=== PATIENT | male | born 1960 | race African-American/Black ===

== ENCOUNTER → 2018-09-10 07:48 | Outpatient (CLI) | payer OTHER ==
[2014-07-13 15:35] VITALS: BMI 25.7
[~2018-09-10 07:48] MED LIST: CELEBREX200 MG PO; ZANAFLEX4 MG PO
[2018-09-11 09:19] LABS: HEPATITIS C ANTIBODY <0.1 (0.0-0.9)
== END | disposition home or self-care (01) ==
LOC: D.US 07:48
PROVIDERS: Internal Medicine Gastroenterology
DX: R79.89 Other specified abnormal findings of blood chemistry (principal)

== ENCOUNTER → 2019-03-13 09:31 | Outpatient (CLI) | payer OTHER ==
[2014-07-13 15:35] VITALS: BMI 25.7
[2019-03-13 10:35] LABS: ALBUMIN 3.6 g/dL (3.4-5.0); BILIRUBIN - DIRECT 0.11 mg/dL (0.00-0.30); BILIRUBIN - INDIRECT 0.27 mg/dL (0.00-1.00); BILIRUBIN - TOTAL 0.38 mg/dL (0.2-1.3); PROTEIN - SERUM 8.1 g/dL (6.4-8.2)
== END | disposition home or self-care (01) ==
LOC: D.US 03-11 09:30
PROVIDERS: ATTEND Internal Medicine Gastroenterology
DX: R94.5 Abnormal results of liver function studies (principal); K76.0 Fatty (change of) liver, not elsewhere classified

== ENCOUNTER → 2019-12-01 14:05 | Outpatient (CLI) | payer MEDICAID ==
[2014-07-13 15:35] VITALS: BMI 25.7
== END | disposition home or self-care (01) ==
LOC: D.HCCARDIO 14:05
PROVIDERS: ATTEND Internal Medicine Interventional Cardiology
DX: R07.9 Chest pain, unspecified (principal)

== ENCOUNTER → 2019-12-04 09:08 | Outpatient (CLI) | payer MEDICAID ==
[2014-07-13 15:35] VITALS: BMI 25.7
--- NOTE | 2019-12-08 11:24 | ST ---
PATIENT:BRENTON BREWER III MEDICAL RECORD: [id number] SEX: M LOCATION:[facility] ORDER #: ADMISSION DATE: 12/04/19 AGE OF PATIENT: 59 REFERRING PHYSICIAN: INTERPRETING PHYSICIAN: MOISÉS VICENTE MD DATE OF SERVICE: 12/04/2019 INDICATION: Angina, hypertension, family history of coronary artery disease. The patient was exercised on standard Lexiscan protocol with 33 mCi of sestamibi injected at peak stress, 11 mCi used previously for rest images. FINDINGS: Gated SPECT reveals preserved ejection fraction at 59% with decreased thickening and brightening throughout the inferior segments. SPECT imaging Cardiolite was used as myocardial perfusion agent. There is a mixed perfusion defect inferiorly, partially fixed, partially reversible. However, there is reversible ischemia anteriorly as well. This includes the basal, mid, apical anterior segments. Degree of reversibility is mild. The amount of myocardium involved between the 2 defects is large. OVERALL IMPRESSION: This is an intermediate risk abnormal nuclear stress test, mixed perfusion defect, partially fixed, partially reversible inferiorly reversibility anteriorly suggestive of hemodynamically significant coronary artery disease. TRANSINT:[id number] Voice Confirmation ID: [id number] DOCUMENT ID: [id number] MOISÉS VICENTE MD at 1124 CC: KRYSTLE OLIVIER [id number] DICTATION DATE: 12/04/19 1340 RN SHIFT MGR: 12/04/19 2100 DEP CLI 12/04/19 [facility] [address] [place] [address]
== END | disposition home or self-care (01) ==
LOC: D.HCCARDIO 09:08
PROVIDERS: ATTEND Internal Medicine Interventional Cardiology
DX: R07.9 Chest pain, unspecified (principal)

== ENCOUNTER → 2020-08-24 18:45 | Outpatient (CLI) | payer MEDICAID ==
[2019-12-17 12:19] VITALS: BMI 27.9
[~2020-08-24 18:45] MED LIST changes: +AMBIEN10 MG PO; +ASPIRIN81 MG PO; +GLUCOPHAGE500 MG PO; +LOTREL 10-20 MG1 CAP PO; +PLAVIX75 MG PO; +PRAVASTATIN SOD10 MG PO; +ZYLOPRIM300 MG PO; +ZYRTEC10 MG PO
[2020-08-24 19:16] LABS: PROTEIN - BODY FLUID 4.1 G/DL
[2020-08-24 21:51] LABS: EOS BF 3 %; MACROPHAGES BF 1 %; MESOTHELIALS BF 4 %; NEUT - BF 43 %
== END | disposition home or self-care (01) ==
LOC: D.LAB 18:45
PROVIDERS: ATTEND Nurse Practitioner Family
DX: M25.561 Pain in right knee (principal)